=== PATIENT | male | born 1985 | race Caucasian/White ===

== ENCOUNTER 2019-09-08 18:24 | Emergency (ER) | payer BC ==
[~2019-09-08] VITALS: Ht 187.9 cm; Wt 117.9 kg
[2019-09-08 18:24] VITALS: BP 155/88
[~2019-09-08 18:24] MED LIST: AUGMENTIN 875 M1 TAB PO; BIAXIN500 MG PO; CLARITIN10 MG PO; DARVOCET N 1001 TAB PO; DAYPRO600 M1 PO; FLEXERIL10 MG PO; IBU-8800 MG PO; MOTRIN800 MG PO; PERCOCET 325 MG1 TA7 PO; ROBAXIN750 MG PO; VICODIN 5/500 505 MG PO; VICODIN 500 MG-1 TAB PO
[2019-09-08] MEDS ORDERED: CYCLOBENZAPRINE5 M3 PO (21:10)
[2019-09-08] MEDS ORDERED: PREDNISONE20 M1 PO (21:10)
== END 2019-09-08 21:10 | disposition home or self-care (01) ==
LOC: ED 18:24
DX: S39.012A Strain of muscle, fascia and tendon of lower back, initial encounter (principal); I10 Essential (primary) hypertension; X58.XXXA Exposure to other specified factors, initial encounter; Y93.61 Activity, american tackle football; Y92.89 Other specified places as the place of occurrence of the external cause; Y99.8 Other external cause status

== ENCOUNTER 2022-03-19 07:23 | Emergency (ER) | payer BC ==
[~2022-03-19] VITALS: Wt 127.0 kg
[~2022-03-19 07:23] MED LIST changes: +CYCLOBENZAPRINE5 M3 PO; +PREDNISONE20 M1 PO
[2022-03-19 07:30] VITALS: BP 178/98
== END 2022-03-19 07:49 | disposition home or self-care (01) ==
LOC: ED 07:23
DX: U07.1 COVID-19 (principal); I10 Essential (primary) hypertension

== ENCOUNTER → 2023-02-28 | Outpatient (CLI) | payer BC | END | disposition home or self-care (01) | LOC: ORTHO 00:11 | PROVIDERS: ATTEND Orthopaedic Surgery | DX: M19.011 Primary osteoarthritis, right shoulder (principal) ==

== ENCOUNTER → 2024-05-19 | Outpatient (CLI) | payer BC ==
[2024-05-19 13:54] LABS: HEMATOCRIT 42.9 % (42.0-52.0); MEAN CELL VOLUME 91.3 fl (80.0-94.0); MEAN CORPUSCULAR HGB 31.7 pg (27.0-31.0); MEAN CORPUSCULAR HGB CONC 34.7 g/dl (33.0-37.0); RED BLOOD COUNT 4.7 10*6/uL (4.50-5.90); WHITE BLOOD COUNT 7.6 10*3/uL (4.8-10.8)
[2024-05-19 14:14] LABS: ALKALINE PHOSPHATASE 104 U/L (46-116); BUN 16 mg/dl (9-23); CHLORIDE 104 mmol/L (98-107); CHOLESTEROL 188 mg/dL (<200); GAMMA GLUTAMYL TRANSPEPTIDASE 63 U/L (0-73); LDL CHOLESTEROL 115 mg/dL (9-159); POTASSIUM 4.1 mmol/L (3.4-5.1); SGPT/ALT 79 U/L (5-49); TOTAL PROTEIN 7.7 gm/dL (6.0-8.0); TRIGLYCERIDES 157 mg/dl (<150)
== END | disposition home or self-care (01) ==
LOC: LAB 13:32
PROVIDERS: ATTEND Family Medicine
DX: Z00.00 Encounter for general adult medical examination without abnormal findings (principal); E55.9 Vitamin D deficiency, unspecified; F10.90 Alcohol use, unspecified, uncomplicated